=== PATIENT | male | born 1965 | race Caucasian/White ===

== ENCOUNTER 2019-05-10 10:13 | Day surgery (SDC) | payer SELFPAY ==
[~2019-05-10] VITALS: Ht 190.5 cm; Wt 116.8 kg
[2019-05-10 11:04] VITALS: BP 107/88; PULSE 61; TEMP 98.1
[2019-05-10] MEDS ORDERED: CORDARONE200 MG/TAB PO (11:13)
[2019-05-10] MEDS ORDERED: ELIQUIS 5MG PO (11:14)
[2019-05-10] MEDS ORDERED: ZESTRIL 5MG5 MG PO (11:15)
[2019-05-10] MEDS ORDERED: COREG12.5 MG PO (11:15)
[2019-05-10] MEDS ORDERED: LASIX 20MG TABL20 MG PO (11:15)
[2019-05-10] MEDS ORDERED: GLUCOPHAGE1000 MG PO (11:16)
[2019-05-10] MEDS ORDERED: MAGNESIUM500 MG PO (11:17)
[2019-05-10] MEDS ORDERED: THE MEDICINE S200 M2 PO (11:17)
[2019-05-10] MEDS ORDERED: GLUCOTROL 5M5 MG/TAB PO (11:17)
[2019-05-10] MEDS ORDERED: VITAMIND3 5000 PO (11:18)
[2019-05-10 11:22] LABS: BASO % 0.7 % (0.0-2.0); EOS % 0.5 % (0-4.0); GRAN # 2.7 (1.4-6.5); HEMATOCRIT 37.3 % (42.0-52.0); HEMOGLOBIN 12.6 g/dl (13.5-18.0); LYMPH # 1.1 (1.2-3.4); LYMPH % 25.6 % (20.0-51.0); MEAN CELL VOLUME 90 fl (80.0-100.0); MEAN CORPUSCULAR HEMOGLOBIN 30 pg (27.0-31.0); MEAN CORPUSCULAR HGB CONC 34 g/dl (33.0-37.0); MEAN PLATELET VOLUME 9.6 fl (7.4-10.4); MONO # 0.4 (0.1-0.6); PLATELET COUNT 162 K/mm3 (130-400); RED BLOOD COUNT 4.16 M/mm3 (4.20-5.60); REDCELL DISTRIBUTION WIDTH-CV 12.5 % (11.5-14.5)
[2019-05-10 11:26] LABS: INR 1.4 (0.8-3.0); PROTHROMBIN TIME 16.1 SECONDS (9.7-12.8)
[2019-05-10 11:40] LABS: CALCIUM 8.7 mg/dL (8.4-10.2); CREATININE, serum 1.06 (0.66-1.25); POTASSIUM 4.2 mmol/L (3.4-5.0)
[2019-05-10 12:39] LABS: THYROID STIMULATING HORMONE 2.63 uIU/mL (0.465-4.680)
[2019-05-10 13:03] VITALS: BP 98/77; PULSE 70; TEMP 98
--- NOTE | 2019-05-10 13:03 | NUR ---
INT discontinued intact. Discharge instructions given. Transferred to private car by gilles
== END 2019-05-10 13:04 | disposition home or self-care (01) ==
LOC: COL.CAR 10:13
PROVIDERS: Internal Medicine Cardiovascular Disease
DX: I48.91 Unspecified atrial fibrillation (principal); I42.0 Dilated cardiomyopathy; E11.9 Type 2 diabetes mellitus without complications; Z79.84 Long term (current) use of oral hypoglycemic drugs; I10 Essential (primary) hypertension; E78.2 Mixed hyperlipidemia; Z95.0 Presence of cardiac pacemaker; Z79.899 Other long term (current) drug therapy; Z79.01 Long term (current) use of anticoagulants; G47.33 Obstructive sleep apnea (adult) (pediatric); Z87.891 Personal history of nicotine dependence; Z86.73 Personal history of transient ischemic attack (TIA), and cerebral infarction without residual deficits; Z86.718 Personal history of other venous thrombosis and embolism
CPT/HCPCS: J2704; J7030